=== PATIENT | male | born 1935 | race Caucasian/White ===

== ENCOUNTER 2019-03-03 10:46 | Inpatient (IN) | payer MEDICARE, MEDICAID ==
[~2019-03-03] VITALS: Ht 165.1 cm; Wt 87.5 kg
[2019-03-03] MEDS ORDERED: SEVE800T8 PO (11:03)
[2019-03-03] MEDS ORDERED: ASPI-605 PO (11:03)
[2019-03-03] MEDS ORDERED: MIDO5TAB PO (11:03)
[2019-03-03] MEDS ORDERED: FOLI0.8T2 PO (11:03)
[2019-03-03] MEDS ORDERED: MONT10TA22 PO (11:03)
[2019-03-03] MEDS ORDERED: FENO135C PO (11:03)
[2019-03-03] MEDS ORDERED: METO-356 PO (11:03)
[2019-03-03] MEDS ORDERED: DOCU100C36 PO (11:03)
[2019-03-03] MEDS ORDERED: SACU1TAB PO (11:03)
[2019-03-03] MEDS ORDERED: ATOR20TA PO (11:03)
[2019-03-03] MEDS ORDERED: FURO40SO PO (11:03)
[2019-03-03] MEDS ORDERED: AMIO200T4 PO (11:03)
[2019-03-03 11:05] LABS: BASOPHILS # (AUTO) 0.1 K/uL (0.0-8.0); BASOPHILS % (AUTO) 0.8 % (0.0-2.0); EOSINOPHILS % (AUTO) 0.3 % (0.0-7.0); HEMATOCRIT 29.5 % (36.7-47.1); HEMOGLOBIN 9.9 g/dL (12.5-16.3); LYMPHOCYTES # (AUTO) 1.7 K/uL (20.0-40.0); LYMPHOCYTES % (AUTO) 12.8 % (20.5-51.5); MEAN CORPUSCULAR HEMOGLOBIN 33.3 uug (23.8-33.4); MEAN CORPUSCULAR HGB CONC 34 g/dL (32.5-36.3); MEAN CORPUSCULAR VOLUME 99.4 fL (73.0-96.2); MONOCYTES % (AUTO) 7.7 % (0.0-11.0); NEUTROPHILS # (AUTO) 10.4 K/uL (1.8-8.9); NEUTROPHILS % (AUTO) 78.4 % (38.5-71.5); PLATELET COUNT (AUTO) 514 K/uL (152-348); RED BLOOD CELL COUNT(AUTO) 2.97 MIL/uL (4.06-5.63); WHITE BLOOD COUNT (AUTO) 13.2 K/uL (3.6-10.2)
--- NOTE | 2019-03-03 11:05 | NUR ---
PAGED VIP NEPHROLOGY FOR DR TO DR RAMIREZ.
[2019-03-03 11:14] LABS: CARBON DIOXIDE 30 mmol/L (21-32); CHLORIDE 92 mmol/L (98-107); GLUCOSE 158 mg/dL (74-106); UREA NITROGEN, BLOOD 78 mg/dL (7-18)
[2019-03-03 11:15] LABS: CREATININE 9.1 mg/dL (0.6-1.3)
[2019-03-03] MEDS ORDERED: IPRATROPIUM BROMIDE 0.5 MG/2.5 ML NEBU ONE (11:15)
[2019-03-03] MEDS ORDERED: IPRATROPIUM BROMIDE 0.5 MG/2.5 ML NEBU NEB ONE (11:15)
[2019-03-03] MEDS ORDERED: ALBUTEROL SULFATE 2.5 MG/ 0.5 ML NEBU NEB ONE (11:15)
--- NOTE | 2019-03-03 11:22 | NUR ---
CALLED TO ER FOR INITIAL BREATHING TX ON THE PATIENT. PT IS AWAKE AND ALERT. NO SHORTNESS OF BREATH NOTED. SPO2 NOTED AT 95%, HR 71BPM, RR 19. BREATH SOUNDS BILATERAL EXPIRATORY WHEEZES, WITH IMPROVED AERATION POST TX. POST TX BREATH SOUNDS ARE BILATERALLY DIMINISHED. PT TOLERATED TX WELL. FAMILY IS AT BEDSIDE.
[2019-03-03] MEDS ORDERED: PIPERACILLIN SODIUM/TAZOBACTAM 3.375 G in IV DEXTROSE 5% 50 ML IV ONE (11:30)
[2019-03-03] MEDS ORDERED: LEVOFLOXACIN 750MG/D5W 150 ML IV ONE ×2 (11:30→11:42)
[2019-03-03] MEDS ORDERED: PIPERACILLIN/TAZOBACTAM/D5W 50 ML IV ONE (11:32)
[2019-03-03 12:00] VITALS: BP 111/43
--- NOTE | 2019-03-03 12:08 | NUR ---
RECEIVED PATIENT FROM ER VIA [facility] WITH DX OF CHF AND PNA. NO SOB NOTED AT THIS TIME. NO C/O PAIN NOTED AT THIS TIME. PATIENT IV ON LEFT ARM INTACT, HAS AV FISTULA ON THE RIGHT UPPER ARM. WILL CONTINUE TO MONITOR AND CONTINUE TREATMENT PLAN.
[2019-03-03 12:20] LABS: BILIRUBIN,DIRECT 0.4 mg/dL (0.0-0.2); BILIRUBIN,TOTAL 0.8 mg/dL (0.2-1.0); TOTAL PROTEIN, SERUM 7.1 g/dL (6.4-8.2)
[2019-03-03] MEDS ORDERED: LEVOFLOXACIN 500 MG/D5W 500 MG in PREMIXED 1 EACH IV SCH (13:00)
[2019-03-03] MEDS ORDERED: ALBUTEROL SULFATE 1.25 MG/3 ML NEBU NEB PRN (13:00)
--- NOTE | 2019-03-03 13:00 | NUR ---
ALBUMIN IV 100ML ORDERED AND GIVEN
[2019-03-03] MEDS ORDERED: ALBUMIN HUMAN 25% 100 ML IV PRN (13:15)
[2019-03-03 13:40] LABS: IRON, SERUM 54 ug/dL (50-175)
[2019-03-03] MEDS: methylPREDNISolone SOD SUCC 40 MG/ML VIAL IV SCH ×2 (14:00→21:35)
[2019-03-03] MEDS ORDERED: Z GUARD REMEDY PASTE 57 GM TUBE TOP PRN (15:15)
[2019-03-03 15:50] VITALS: BP 111/24
[2019-03-03] MEDS: SEVELAMER CARBONATE 800 MG TABLET PO SCH (17:53)
[2019-03-03] MEDS: ENTRESTO PO SCH (17:53)
[2019-03-03] MEDS: FENOFIBRATE 134 MG PO SCH (17:53)
[2019-03-03] MEDS ORDERED: FENO134C PO (18:34)
[2019-03-03 20:00] VITALS: BP 120/28
--- NOTE | 2019-03-03 20:00 | NUR ---
RECEIVED PATIENT AWAKE AND ALERT IN BED WITH FAMILY AT BEDSIDE. NO COMPLAINTS OF PAIN OR DISCOMFORT VERBALIZED AT THIS TIME. ALL SAFETY AND FALL PRECAUTION MEASURES ARE IN PLACE. VS ARE WNL. CALL LIGHT AND PERSONAL ITEMS ARE WITHIN REACH AT ALL TIMES. WILL CONTINUE TO MONITOR.
[2019-03-03] MEDS: ATORVASTATIN 20 MG TABLET PO SCH (21:35)
[2019-03-03] MEDS: Z GUARD REMEDY PASTE 57 GM TUBE TOP SCH (21:39)
[2019-03-04] VITALS (9 sets, daily range): BP systolic 60–126; BP diastolic 13–74
[2019-03-04] MEDS: IPRATROPIUM BROMIDE 0.5 MG/2.5 ML NEBU NEB PRN (01:15)
[2019-03-04] MEDS: methylPREDNISolone SOD SUCC 40 MG/ML VIAL IV SCH (05:49)
--- NOTE | 2019-03-04 06:00 | NUR ---
RECEIVED SYSTEM ERROR WHEN TRYING TO WEIGH PATIENT. HAD PATIENT GET OUT OF BED SO I COULD ZERO SCALE BUT RECEIVED SYSTEM ERROR AGAIN. WILL REPORT TO ONCOMING SHIFT. Addendum: 03/04/19 at 0639 by JACKIE WARD RN Amended: Links added.
--- NOTE | 2019-03-04 06:00 | NUR ---
UNABLE TO WEIGH PATIENT DUE TO SYSTEM ERROR RECEIVED USING BED SCALE. TRIED HAVING PATIENT STAND UP AND ZERO OUT BED, BUT RECEIVED SYSTEM ERROR WHEN ZEROING OUT BED, WELL. WILL REPORT TO ONCOMING SHIFT.
[2019-03-04 06:42] LABS: BASOPHILS % (AUTO) 0.1 % (0.0-2.0); HEMATOCRIT 26.2 % (36.7-47.1); HEMOGLOBIN 8.9 g/dL (12.5-16.3); LYMPHOCYTES # (AUTO) 0.4 K/uL (20.0-40.0); LYMPHOCYTES % (AUTO) 4.2 % (20.5-51.5); MEAN CORPUSCULAR HEMOGLOBIN 33.4 uug (23.8-33.4); MEAN CORPUSCULAR HGB CONC 34 g/dL (32.5-36.3); MEAN CORPUSCULAR VOLUME 98.9 fL (73.0-96.2); MONOCYTES # (AUTO) 0.4 K/uL (2.0-10.0); MONOCYTES % (AUTO) 4.3 % (0.0-11.0); NEUTROPHILS # (AUTO) 8.7 K/uL (1.8-8.9); NEUTROPHILS % (AUTO) 91.4 % (38.5-71.5); PLATELET COUNT (AUTO) 421 K/uL (152-348); RED BLOOD CELL COUNT(AUTO) 2.65 MIL/uL (4.06-5.63); WHITE BLOOD COUNT (AUTO) 9.5 K/uL (3.6-10.2)
--- NOTE | 2019-03-04 06:56 | NUR ---
PATIENT IS IN BED ASLEEP RESTING COMFORTABLY. NO SIGNS OR SYMPTOMS OF ACUTE DISTRESS OR DISCOMFORT NOTED OR OBSERVED. VS ARE WNL AND PATIENT IS STABLE. ALL SAFETY AND FALL PRECAUTION MEASURES REMAIN IN PLACE. CALL LIGHT AND PERSONAL ITEMS ARE WITHIN REACH AT ALL TIMES.
[2019-03-04 07:01] LABS: CARBON DIOXIDE 26 mmol/L (21-32); CHLORIDE 90 mmol/L (98-107); MAGNESIUM 2.6 mg/dL (1.8-2.4); POTASSIUM 5.7 mmol/L (3.5-5.1)
[2019-03-04 07:05] LABS: CREATININE 10.2 mg/dL (0.6-1.3); GLUCOSE 367 mg/dL (74-106); PHOSPHOROUS 8.5 mg/dL (2.5-4.9); UREA NITROGEN, BLOOD 90 mg/dL (7-18)
[2019-03-04] MEDS: AMIODARONE HCL 200 MG TABLET PO SCH (08:25)
[2019-03-04] MEDS: FOLIC ACID/VITAMIN B COMP W-C TABLET PO SCH (08:25)
[2019-03-04] MEDS: FUROSEMIDE 40 MG TABLET PO SCH (08:25)
[2019-03-04] MEDS: METOPROLOL SUCCINATE XL 25 MG TAB.SR.24H PO SCH (08:25)
[2019-03-04] MEDS: SEVELAMER CARBONATE 800 MG TABLET PO SCH ×3 (08:25→17:07)
[2019-03-04] MEDS: DOCUSATE SODIUM 100 MG CAPSULE PO SCH (08:25)
[2019-03-04] MEDS: MONTELUKAST SODIUM 10 MG TABLET PO SCH (08:25)
[2019-03-04] MEDS: Z GUARD REMEDY PASTE 57 GM TUBE TOP SCH ×2 (08:26→21:38)
[2019-03-04] MEDS ORDERED: ASPIRIN EC 81 MG TABLET.DR PO SCH (09:00)
[2019-03-04] MEDS ORDERED: FENOFIBRIC ACID 135 MG PO SCH (09:00)
[2019-03-04] MEDS: ENTRESTO PO SCH ×2 (09:08→17:07)
[2019-03-04] MEDS: FENOFIBRATE 134 MG PO SCH (09:08)
--- NOTE | 2019-03-04 10:10 | NUR ---
Family members at bedside,updated with pt.condition and plan of care.
[2019-03-04] MEDS: BLOOD SUGAR DIAGNOSTIC 1 EACH STRIP VI SCH ×3 (11:56→21:36)
[2019-03-04] MEDS: INSULIN REGULAR, HUMAN 300 UNIT/3 ML VIAL SQ PRN ×2 (11:58→17:10)
--- NOTE | 2019-03-04 12:55 | NUR ---
Pt.was seen by ,was notified about US guided Paracentesis on hold due high coags resolts and elev.BS.
[2019-03-04] MEDS ORDERED: EPOETIN ALFA 10,000 UNITS/ML VIAL SQ ONE (13:00)
[2019-03-04] MEDS: ONDANSETRON 4 MG/2 ML VIAL IV PRN ×2 (13:04→17:34)
--- NOTE | 2019-03-04 14:30 | NUR ---
HD RN at bedside,HD started.
[2019-03-04] MEDS ORDERED: ALBUMIN HUMAN 25% 100 ML IV ONE (15:00)
[2019-03-04] MEDS: PANTOPRAZOLE SODIUM 40 MG TABLET.DR PO SCH (17:07)
--- NOTE | 2019-03-04 17:20 | NUR ---
HD done,pt.c/o on nausea,Zofran IV given.
--- NOTE | 2019-03-04 19:47 | NUR ---
PATIENT BP WAS LOW 81/42, RECHECK BP BECAME 60/13, RAPID RESPONSE WAS CALLED. CONT TO MONITOR.PATIENT ALERT ORIENTED, PATIENT WAS DIALYSE 1500CC TAKEN OUT PER AM NURSE, PATIENT ALERT ORIENTED, PATIENT COMPLAIN OF ABDOMINAL PAIN,
--- NOTE | 2019-03-04 19:53 | NUR ---
PATIENT BP WAS LOW 80/22, 80/13, HOB WAS LOWER AND LEG UP BP CAME UP 89/36, DEBI THOMPSON WAS NOTIFY AND SAID PATIENT BP IS ALWAYS AND NO NEW ORDER, AND MD STATED CALL HIM IF SBP BELOW 80.
--- NOTE | 2019-03-04 19:58 | NUR ---
WILL CONT TO MONITOR CONDITION.
[2019-03-04 20:17] LABS: HEMATOCRIT 27.2 % (36.7-47.1); LYMPHOCYTES # (AUTO) 1.1 K/uL (20.0-40.0); LYMPHOCYTES % (AUTO) 6.9 % (20.5-51.5); MEAN CORPUSCULAR HEMOGLOBIN 32.6 uug (23.8-33.4); MEAN CORPUSCULAR HGB CONC 33 g/dL (32.5-36.3); MEAN CORPUSCULAR VOLUME 98.8 fL (73.0-96.2); MONOCYTES # (AUTO) 1.2 K/uL (2.0-10.0); MONOCYTES % (AUTO) 7.9 % (0.0-11.0); NEUTROPHILS # (AUTO) 13.1 K/uL (1.8-8.9); NEUTROPHILS % (AUTO) 85.2 % (38.5-71.5); PLATELET COUNT (AUTO) 553 K/uL (152-348); RED BLOOD CELL COUNT(AUTO) 2.75 MIL/uL (4.06-5.63); WHITE BLOOD COUNT (AUTO) 15.4 K/uL (3.6-10.2)
[2019-03-04] MEDS: ATORVASTATIN 20 MG TABLET PO SCH (21:35)
[2019-03-05 00:03] VITALS: BP 140/84
--- NOTE | 2019-03-05 00:15 | NUR ---
PATIENT WAS FOUND ON FLOOR IN THE SEATING POSITION, AND BEHIND THE PATIENT IS A CHAIR NEXT HIS BED. INTERVIEWED PATIENT IF HE HAS PAIN ON ANY PART OF HIS BODY, PATIENT STATED "NO PAIN". ASSISTED PATIENT BACK TO BED, BODY CHECK WAS DONE, NO APPARENT INJURY NOTED, NO COMPLAIN OF PAIN, GENTLE ROM DONE ON FOUR EXTREMITY. PUT 2 SIDERAILS AND CALL LIGHT WITHIN REACH, BED ALARM WAS PUT ON. FREQUENT VISUAL CHECK DONE, AND RN AND WASHING MACHINE ASSEMBLER ALTERNATE TO PROVIDE 1;1 SITTING. NO S/S OF DISTRESS.
[2019-03-05] MEDS: diphenhydrAMINE 25 MG CAP PO PRN (00:26)
--- NOTE | 2019-03-05 00:37 | NUR ---
PATIENT HAS SEVERE ANXIETY, RESTLESSNESS, COMPLAIN OF ABDOMINAL DISCOMFORT. CALLED DEBI PRETTY WITH ORDER OF ATIVAN 0.5 MG PO EVERY 6 HRS NEEDED FOR ANXIETY. MD PREFER TO ADDRESS ABDOMINAL DISCOMFORT IN AM. MD NOTIFY THAT PATIENT FOUND ON FLOOR SEATING POSITION ON HIS ROOM.
[2019-03-05] MEDS: BLOOD SUGAR DIAGNOSTIC 1 EACH STRIP VI SCH ×4 (05:46→22:05)
[2019-03-05] MEDS: PANTOPRAZOLE SODIUM 40 MG TABLET.DR PO SCH ×2 (05:46→16:49)
--- NOTE | 2019-03-05 05:59 | NUR ---
PATIENT HAS REDNESS OF BAN AREA, WITH ORDER.
[2019-03-05 06:28] VITALS: BP 107/35
[2019-03-05] MEDS: Z GUARD REMEDY PASTE 57 GM TUBE TOP SCH ×3 (06:31→22:01)
[2019-03-05 06:33] LABS: ALANINE AMINOTRANSFERASE 19 U/L (16-63); ALKALINE PHOSPHATASE 37 U/L (50-136); ASPARTATE AMINOTRANSFERASE 15 U/L (15-37); BASOPHILS % (AUTO) 0.1 % (0.0-2.0); BILIRUBIN,TOTAL 0.7 mg/dL (0.2-1.0); CARBON DIOXIDE 27 mmol/L (21-32); CHLORIDE 99 mmol/L (98-107); GLUCOSE 228 mg/dL (74-106); HEMATOCRIT 24.6 % (36.7-47.1); HEMOGLOBIN 8.2 g/dL (12.5-16.3); LYMPHOCYTES # (AUTO) 1.2 K/uL (20.0-40.0); LYMPHOCYTES % (AUTO) 9.3 % (20.5-51.5); MAGNESIUM 2.7 mg/dL (1.8-2.4); MEAN CORPUSCULAR HEMOGLOBIN 33.1 uug (23.8-33.4); MEAN CORPUSCULAR HGB CONC 33 g/dL (32.5-36.3); MEAN CORPUSCULAR VOLUME 99.6 fL (73.0-96.2); MONOCYTES # (AUTO) 1.2 K/uL (2.0-10.0); MONOCYTES % (AUTO) 8.9 % (0.0-11.0); NEUTROPHILS # (AUTO) 10.9 K/uL (1.8-8.9); NEUTROPHILS % (AUTO) 81.7 % (38.5-71.5); PHOSPHOROUS 6.7 mg/dL (2.5-4.9); PLATELET COUNT (AUTO) 494 K/uL (152-348); POTASSIUM 5.4 mmol/L (3.5-5.1); TOTAL PROTEIN, SERUM 6.5 g/dL (6.4-8.2); WHITE BLOOD COUNT (AUTO) 13.3 K/uL (3.6-10.2)
[2019-03-05 06:39] LABS: RED BLOOD CELL COUNT(AUTO) 2.47 MIL/uL (4.06-5.63)
[2019-03-05 06:51] LABS: CREATININE 7.9 mg/dL (0.6-1.3); UREA NITROGEN, BLOOD 81 mg/dL (7-18)
[2019-03-05 07:26] VITALS: BP 105/55
--- NOTE | 2019-03-05 07:32 | NUR ---
PATIENT FAMILY WAS CALLED AND NOTIFY OF THE INCIDENT. SPOKE TO MIRANDA PATIENT SON REGARDING THE INCIDENT.
--- NOTE | 2019-03-05 07:35 | NUR ---
PATIENT AWAKE BUT FORGETFUL NO SOB NO CHEST PAIN, NO COMPLAIN OF PAIN, ENDORSED TO NEXT SHIFT.
--- NOTE | 2019-03-05 08:00 | NUR ---
IN DED WITH NO SS OF PAIN, SLIGHT SOB ON EXERTION WITH ADLS, O2 2L NC SATURATING 97%. 100% V-PACED ON MONITOR ULR SR. CLOSELY MONITORED
[2019-03-05] MEDS: DOCUSATE SODIUM 100 MG CAPSULE PO SCH (08:16)
[2019-03-05] MEDS: FOLIC ACID/VITAMIN B COMP W-C TABLET PO SCH (08:16)
[2019-03-05] MEDS: FUROSEMIDE 40 MG TABLET PO SCH (08:16)
[2019-03-05] MEDS: METOPROLOL SUCCINATE XL 25 MG TAB.SR.24H PO SCH (08:17)
[2019-03-05] MEDS: MONTELUKAST SODIUM 10 MG TABLET PO SCH (08:19)
[2019-03-05] MEDS: SEVELAMER CARBONATE 800 MG TABLET PO SCH ×3 (08:19→17:02)
[2019-03-05] MEDS: AMIODARONE HCL 200 MG TABLET PO SCH (08:19)
[2019-03-05] MEDS: FENOFIBRATE 134 MG PO SCH (08:22)
[2019-03-05] MEDS: INSULIN REGULAR, HUMAN 300 UNIT/3 ML VIAL SQ PRN ×3 (08:24→22:09)
[2019-03-05] MEDS: ENTRESTO PO SCH (08:31)
[2019-03-05 10:59] VITALS: BP 90/41
--- NOTE | 2019-03-05 11:00 | NUR ---
SEEN BY PORSHA TRENT MADE AWARE OF PATIENT LOW BP DURING PHYSICAL THERAPY SESSION. SEE NOTES.
[2019-03-05] MEDS: LEVOFLOXACIN 500 MG/D5W 100 ML IV SCH (11:41)
[2019-03-05] MEDS ORDERED: LEVOFLOXACIN 500 MG/D5W 500 MG in PREMIXED 1 EACH IV SCH (12:00)
--- NOTE | 2019-03-05 14:04 | NUR ---
PATIENT KEPT ON NPO FOR ABD US
[2019-03-05 15:00] VITALS: BP 98/38
--- NOTE | 2019-03-05 16:54 | NUR ---
Insulin not administered at this time for patient's blood sugar level of 140. Patient has not yet eaten and kept NPO for abdominal ultrasound. Hypoglycemic prevention implemented.
--- NOTE | 2019-03-05 16:56 | NUR ---
Notified by Gasoline Engine Inspector that MD will cancel Abdominal Ultrasound. Will take patient off NPO status.
--- NOTE | 2019-03-05 18:24 | NUR ---
Patient resting comfortably in bed at this time. No signs of distress. No SOB noted. Denies any pain experienced. Stable condition. Blood pressure improving/elevating slightly throughout shift. Safety measures implemented. Will continue to monitor until end of shift.
[2019-03-05 20:00] VITALS: BP 109/35
--- NOTE | 2019-03-05 21:24 | NUR ---
PROCALCITONIN RESULTS 5.51 NOTIFY ALEXIS FERNANDO.
[2019-03-05] MEDS: ATORVASTATIN 20 MG TABLET PO SCH (22:01)
[2019-03-06] VITALS: BP 94/32
[2019-03-06] MEDS: IPRATROPIUM BROMIDE 0.5 MG/2.5 ML NEBU NEB PRN (01:17)
[2019-03-06 04:00] VITALS: BP 113/44
[2019-03-06 05:13] LABS: *OCCULT BLOOD STOOL POSITIVE (NEGATIVE)
[2019-03-06 06:16] LABS: EOSINOPHILS % (AUTO) 0.1 % (0.0-7.0); HEMATOCRIT 25.1 % (36.7-47.1); HEMOGLOBIN 8.3 g/dL (12.5-16.3); LYMPHOCYTES # (AUTO) 1.4 K/uL (20.0-40.0); LYMPHOCYTES % (AUTO) 10.8 % (20.5-51.5); MEAN CORPUSCULAR HEMOGLOBIN 32.9 uug (23.8-33.4); MEAN CORPUSCULAR HGB CONC 33 g/dL (32.5-36.3); MEAN CORPUSCULAR VOLUME 99.3 fL (73.0-96.2); MONOCYTES # (AUTO) 1.1 K/uL (2.0-10.0); MONOCYTES % (AUTO) 8.3 % (0.0-11.0); NEUTROPHILS # (AUTO) 10.5 K/uL (1.8-8.9); NEUTROPHILS % (AUTO) 80.8 % (38.5-71.5); PLATELET COUNT (AUTO) 459 K/uL (152-348); RED BLOOD CELL COUNT(AUTO) 2.53 MIL/uL (4.06-5.63)
[2019-03-06 06:31] LABS: CARBON DIOXIDE 28 mmol/L (21-32); CHLORIDE 97 mmol/L (98-107); GLUCOSE 157 mg/dL (74-106); POTASSIUM 5.6 mmol/L (3.5-5.1)
[2019-03-06 06:39] LABS: CREATININE 9.3 mg/dL (0.6-1.3); UREA NITROGEN, BLOOD 98 mg/dL (7-18)
[2019-03-06] MEDS: BLOOD SUGAR DIAGNOSTIC 1 EACH STRIP VI SCH ×4 (07:58→20:58)
[2019-03-06] MEDS: SEVELAMER CARBONATE 800 MG TABLET PO SCH ×3 (08:00→17:34)
[2019-03-06] MEDS: DOCUSATE SODIUM 100 MG CAPSULE PO SCH (08:07)
[2019-03-06] MEDS: AMIODARONE HCL 200 MG TABLET PO SCH (08:08)
[2019-03-06] MEDS: FENOFIBRATE 134 MG PO SCH (08:08)
[2019-03-06] MEDS: FOLIC ACID/VITAMIN B COMP W-C TABLET PO SCH (08:09)
[2019-03-06] MEDS: METOPROLOL SUCCINATE XL 25 MG TAB.SR.24H PO SCH (08:09)
[2019-03-06] MEDS: MONTELUKAST SODIUM 10 MG TABLET PO SCH (08:09)
--- NOTE | 2019-03-06 08:10 | NUR ---
PATIENT IS CURRENTLY HAVING DIALYSIS AND DID NOT WANT TO EAT HIS BREAKFAST SO INSULIN COVERAGE PER SLIDING SCALE NOT GIVEN REFUSED ALL OF HIS OTHER MEDICATIONS AT THIS TIME WILL OFFER THEM AGAIN TO HIM LATER.
[2019-03-06] MEDS: Z GUARD REMEDY PASTE 57 GM TUBE TOP SCH ×2 (08:59→20:58)
[2019-03-06] MEDS ORDERED: ALBUMIN HUMAN 25% 100 ML IV ONE (09:00)
--- NOTE | 2019-03-06 09:00 | NUR ---
ALBUMIN GIVEN ORDERED BY THE DIALYSIS NURSE DIALYSIS STILL IN PROGRESS ORDERED.
--- NOTE | 2019-03-06 10:00 | NUR ---
DIALYSIS COMPLETED ORDERED AND HE TOOK OUT 500 ML BLOOD PRESSURE AT THIS TIME IS 91/38
[2019-03-06 10:59] LABS: BILIRUBIN,DIRECT 0.4 mg/dL (0.0-0.2); BILIRUBIN,TOTAL 0.8 mg/dL (0.2-1.0); TOTAL PROTEIN, SERUM 6.6 g/dL (6.4-8.2)
--- NOTE | 2019-03-06 11:45 | NUR ---
PATIENT WANTS TO GET UP ON THE CHAIR ASSISTED AND HE SEATED ON THE CHAIR IN HIS ROOM O2 REMOVED AT THIS TIME AND RECHECKED AFTER 15 MINS AND HE IS AT 93-94 PERCENT SO PATIENT LEFT ON ROOM AIR AND WILL CONTINUE TO OBSERVE AND MONITOR HIS SATURATIONS.
[2019-03-06 12:06] VITALS: BP 108/78
[2019-03-06 12:06] LABS: HEPATITIS B SURFACE AB Reactive (.); HEPATITIS B SURFACE AG Negative (Negative)
[2019-03-06 15:50] VITALS: BP 100/37
--- NOTE | 2019-03-06 16:20 | NUR ---
BLOOD PRESSURE HAS BEEN CONSISTENTLY LOW PATIENT PLACED ON TREN[place]ENSBERG POSITION RANGES BETWEEN 88-100 SYSTOLIC AND DIASTOLIC 29-38 CALLED AND NOTIFIED ALEXIS STORY AND HE STATED TO GO AHEAD AND GIVE PATIENT HIS MIDODRINE WILL CONTINUE TO OBSERVE.
[2019-03-06 16:24] VITALS: BP 99/37
[2019-03-06] MEDS: MIDODRINE HCL 5 MG TABLET PO SCH (16:24)
[2019-03-06] MEDS: PANTOPRAZOLE SODIUM 40 MG TABLET.DR PO SCH (16:43)
[2019-03-06] MEDS: INSULIN REGULAR, HUMAN 300 UNIT/3 ML VIAL SQ PRN (16:47)
--- NOTE | 2019-03-06 17:34 | NUR ---
PATIENT REFUSED DINNER BUT IS DRINKING JUICES RENVELLA NOT GIVEN AT THIS TIME.
--- NOTE | 2019-03-06 18:00 | NUR ---
RESTING STILL FEELING WEAK BLOOD PRESSURE STILL LOW AT 100 SYSTOLIC WILL CONTINUE TO OBSERVE.
[2019-03-06 20:06] VITALS: BP 122/31
[2019-03-06] MEDS: ATORVASTATIN 20 MG TABLET PO SCH (20:57)
[2019-03-06] MEDS: INSULIN REGULAR, HUMAN 300 UNITS/3 ML VIAL SQ PRN (21:00)
[2019-03-06] MEDS: diphenhydrAMINE 25 MG CAP PO PRN (23:28)
[2019-03-07 00:47] VITALS: BP 152/41
[2019-03-07 04:48] VITALS: BP 121/85
[2019-03-07] MEDS: PANTOPRAZOLE SODIUM 40 MG TABLET.DR PO SCH ×2 (06:11→16:06)
[2019-03-07] MEDS: BLOOD SUGAR DIAGNOSTIC 1 EACH STRIP VI SCH ×4 (06:28→21:32)
[2019-03-07 07:05] LABS: CARBON DIOXIDE 25 mmol/L (21-32); CHLORIDE 98 mmol/L (98-107); GLUCOSE 156 mg/dL (74-106); POTASSIUM 5.7 mmol/L (3.5-5.1); UREA NITROGEN, BLOOD 79 mg/dL (7-18)
[2019-03-07 07:10] LABS: CREATININE 8.2 mg/dL (0.6-1.3)
--- NOTE | 2019-03-07 07:29 | NUR ---
END OF SHIFT REPORT PATIENT RESTED WELL IN BETWEEN CARE; INC ON STOOL X1; CLEANED AND MADE COMFORTABLE; SAFETY MAINTAINED; NEEDS ATTENDED; CONTINUE PLAN OF CARE
--- NOTE | 2019-03-07 07:33 | NUR ---
RECEIVED PATIENT ASLEEP BUT IS EASILY AROUSABLE ON ROUNDS REMAIN ON O2 AT 2L/M BY NASAL CANULA WITH NO SHORTNESS OF BREATH AT THIS TIME.RIGHT ARM AV SHUNT INTACT WITH BRUIT AND THRILL ABDOMEN REMAIN LARGE AND DISTENDED WILL ATTEMPT TO KEEP PATIENT NPO PENDING CT ABDOMEN ORDERED WILL CALL THE CT DEPT TO INQUIRE WHEN THEY WILL BE HERE
--- NOTE | 2019-03-07 07:45 | NUR ---
PATIENT IS NPO INSULIN NOT GIVEN AT THIS TIME.
--- NOTE | 2019-03-07 07:55 | NUR ---
CALL RECEIVED FROM AJAY THE GLOST KIL[employer] OPERATOR AND SHE STATED THAT THE [email or web address] SOUND TECH WILL BE HERE ABOUT 0830 TODAY.
--- NOTE | 2019-03-07 07:56 | NUR ---
PATIENT WILL BE KEPT NPO PENDING THE UTRA SOUND OF THE ABDOMEN ORDERED
[2019-03-07] MEDS: SEVELAMER CARBONATE 800 MG TABLET PO SCH ×3 (08:00→17:09)
[2019-03-07] MEDS: METOPROLOL SUCCINATE XL 25 MG TAB.SR.24H PO SCH (09:00)
[2019-03-07] MEDS: FENOFIBRATE 134 MG PO SCH (09:00)
[2019-03-07] MEDS: MONTELUKAST SODIUM 10 MG TABLET PO SCH (09:00)
[2019-03-07] MEDS: DOCUSATE SODIUM 100 MG CAPSULE PO SCH (09:00)
[2019-03-07] MEDS: FOLIC ACID/VITAMIN B COMP W-C TABLET PO SCH (09:00)
[2019-03-07] MEDS: AMIODARONE HCL 200 MG TABLET PO SCH (09:00)
--- NOTE | 2019-03-07 09:15 | NUR ---
ALEXIS STORY HERE TO SEE PATIENT SPOKE WITH THE PATIENT AND HIS FAMILY AT LENGTH AND EXPLAINED TO THEM PLAN OF CARE AND THEY EXPRESSED UNDERSTANDING.
--- NOTE | 2019-03-07 09:30 | NUR ---
PER ALEXIS PATIENT WILL RECEIVE FFP IN AM BEFORE HIS PARACENTHESIS TOMORROW PATIENT AND FAMILY AWARE AND CONSCENT SIGNED BY THE PATIENT AND DOCUMENTED
--- NOTE | 2019-03-07 09:46 | NUR ---
PATIENT HAS POOR VEIV DORY ESPINOZA AWARE WITH ORDER FOR A MID LINE THE BLEACHER PULP MELODIE NOTIFIED WILL CALL THE MID LINE NURSE.
[2019-03-07] MEDS: Z GUARD REMEDY PASTE 57 GM TUBE TOP SCH ×2 (09:50→21:13)
--- NOTE | 2019-03-07 09:55 | NUR ---
PATIENT IS REFUSING TO EAT ATE ONLY ONE BITE OF HIS FOOD AND REFUSING TO TAKE HIS MEDICATIONS AT THIS TIME.
[2019-03-07] MEDS ORDERED: PHYTONADIONE 5 MG TABLET PO ONE (10:15)
[2019-03-07 10:16] LABS: BASOPHILS % (AUTO) 0.3 % (0.0-2.0); EOSINOPHILS % (AUTO) 0.1 % (0.0-7.0); HEMATOCRIT 26.8 % (36.7-47.1); HEMOGLOBIN 8.6 g/dL (12.5-16.3); LYMPHOCYTES # (AUTO) 1.4 K/uL (20.0-40.0); LYMPHOCYTES % (AUTO) 8.6 % (20.5-51.5); MEAN CORPUSCULAR HGB CONC 32 g/dL (32.5-36.3); MEAN CORPUSCULAR VOLUME 99.7 fL (73.0-96.2); MONOCYTES # (AUTO) 1.5 K/uL (2.0-10.0); MONOCYTES % (AUTO) 8.8 % (0.0-11.0); NEUTROPHILS # (AUTO) 13.8 K/uL (1.8-8.9); NEUTROPHILS % (AUTO) 82.2 % (38.5-71.5); PLATELET COUNT (AUTO) 520 K/uL (152-348); RED BLOOD CELL COUNT(AUTO) 2.69 MIL/uL (4.06-5.63); WHITE BLOOD COUNT (AUTO) 16.8 K/uL (3.6-10.2)
--- NOTE | 2019-03-07 10:17 | NUR ---
DR CHRISTIANIAN HERE TO SEE AND EXAMINE PATIENT WITH NEW ORDERS AND NOTED.
[2019-03-07] MEDS: INSULIN REGULAR, HUMAN 300 UNIT/3 ML VIAL SQ PRN ×2 (11:07→16:01)
[2019-03-07] MEDS: LEVOFLOXACIN 500 MG/D5W 100 ML IV SCH (11:09)
[2019-03-07 11:10] VITALS: BP 110/40
[2019-03-07] MEDS ORDERED: PHYTONADIONE 10 MG/1 ML AMPUL SQ ONE (12:15)
[2019-03-07 15:58] VITALS: BP 147/58
--- NOTE | 2019-03-07 16:19 | NUR ---
MID LINE INSERTED TO HIS RIGHT UPPER ARM GAUGE 18 AND TOLERATED PROCEDURE WELL
[2019-03-07] MEDS: ONDANSETRON 4 MG/2 ML VIAL IV PRN (17:08)
--- NOTE | 2019-03-07 17:09 | NUR ---
PATIENT VOMITED 150 ML OF PARTLY UNDIGESTED FOOD MEDICATED WITH ZOFRAN ORDERED UNABLE TO EAT AND SUCH RENVELLA NOT GIVEN WILL CONTINUE TO OBSERVE.
--- NOTE | 2019-03-07 18:00 | NUR ---
RESTING NO FURTHER EMESIS AT THIS TIME AT BEDSIDE IS UNABLE TO EAT DINNER WILL CONTINUE TO OBSERVE.
[2019-03-07 20:08] VITALS: BP 110/47
--- NOTE | 2019-03-07 20:35 | NUR ---
Spoke with Dr. Danis Momin about FFP order and Plt of 520. Asked if it safe to transfuse. replied it is for Pt/INR and it is safe to procede with FFP transfusion. hydroelectric mechanic notified.
[2019-03-07] MEDS: ATORVASTATIN 20 MG TABLET PO SCH (21:13)
[2019-03-07] MEDS: INSULIN REGULAR, HUMAN 300 UNITS/3 ML VIAL SQ PRN (21:34)
--- NOTE | 2019-03-07 21:40 | NUR ---
Report from CHRISTOPHER MOORE. Received pt resting in bed, semi James's position. Pt alert and oriented x2 to name and place. Discussed and reviewed plan of care with pt, pt passive but states okay. Tele noted to be V pacing with HR 76. O2 sats up to 94% via 3L NC. Pt with productive cough, no secretions noted. Pt shows no s/s of acute distress. Pt denies pain, discomfort or SOB. Assessment completed. Aspiration and safety precautions observed. Call light within reach. Will continue to monitor.
--- NOTE | 2019-03-07 22:10 | NUR ---
Notified [facility] furniture rental consultant DR BURK regarding critical lab value PROCALCITONIN 5.25. No new orders received. Will continue to monitor.
--- NOTE | 2019-03-07 23:30 | NUR ---
Call made to [facility] electronics worker DR BURK regarding pt condition. Notified MD about pt retaining urine, bladder scanner noted to be 790 cc. Also notified MD about pt's recent low blood pressure readings, SBPs ranging from 86 - 90s. New order of rodríguez catheter insertion and to continue to monitor pt's BP values. Will continue with plan of care. Addendum: 03/08/19 at 0651 by MYLES FLOWER RN INCORRECT DOCUMENTATION: CORRECTION 490 cc.
--- NOTE | 2019-03-07 23:47 | NUR ---
De Leon cath FR 16 inserted aseptically. No signs of bleeding during insertion. Pt tolerated procedure well, no acute distress noted. Urine noted to be khushboo color. Continue to monitor.
[2019-03-08] VITALS (16 sets, daily range): BP systolic 102–156; BP diastolic 11–51
--- NOTE | 2019-03-08 02:35 | NUR ---
Blood transfusion started. Pt denies discomfort, no signs of respiratory distress noted. See transfusions flow sheet for data. Will continue to monitor closely.
--- NOTE | 2019-03-08 04:00 | NUR ---
1 unit of FFP infused. Pt has no complaints of discomfort, SOB or pain at this time. Will monitor closely and continue plan of care.
--- NOTE | 2019-03-08 04:05 | NUR ---
Spoke to Jose F from LAB/BLOOD BANK regarding second unit of FFP product. Verified pt name, , medical record number and registration number. Unable to scan product. Clarified with Jose F and states that standard product number is unable to scan through [employer] system. States to use the blood transfusion record form. Nutrition Specialist aware. Will administer FFP and continue to monitor closely.
--- NOTE | 2019-03-08 04:15 | NUR ---
Second unit of FFP started. Pt denies pain or SOB. BP 119/42. HR 91. O2 sats up to 99% via 3L NC. RR 20. Pt afebrile. No s/s of blood transfusion reaction. Will continue to monitor.
--- NOTE | 2019-03-08 05:30 | NUR ---
1 unit of FFP infused and completed. A total of 2 units of FFP infused. Pt had no s/s of SOB, nausea or severe pain. No signs of acute distress noted. Will continue plan of care.
[2019-03-08 05:35] LABS: BASOPHILS % (AUTO) 0.2 % (0.0-2.0); EOSINOPHILS % (AUTO) 0.2 % (0.0-7.0); HEMATOCRIT 23.2 % (36.7-47.1); HEMOGLOBIN 7.6 g/dL (12.5-16.3); LYMPHOCYTES # (AUTO) 1.2 K/uL (20.0-40.0); LYMPHOCYTES % (AUTO) 8.6 % (20.5-51.5); MEAN CORPUSCULAR HEMOGLOBIN 32.5 uug (23.8-33.4); MEAN CORPUSCULAR HGB CONC 33 g/dL (32.5-36.3); MEAN CORPUSCULAR VOLUME 99.5 fL (73.0-96.2); MONOCYTES # (AUTO) 1.3 K/uL (2.0-10.0); MONOCYTES % (AUTO) 9.4 % (0.0-11.0); NEUTROPHILS % (AUTO) 81.6 % (38.5-71.5); PLATELET COUNT (AUTO) 415 K/uL (152-348); WHITE BLOOD COUNT (AUTO) 13.5 K/uL (3.6-10.2)
[2019-03-08 05:37] LABS: RED BLOOD CELL COUNT(AUTO) 2.33 MIL/uL (4.06-5.63)
[2019-03-08 05:56] LABS: CARBON DIOXIDE 28 mmol/L (21-32); CHLORIDE 99 mmol/L (98-107); GLUCOSE 83 mg/dL (74-106); POTASSIUM 5.4 mmol/L (3.5-5.1)
[2019-03-08 06:01] LABS: CREATININE 9.3 mg/dL (0.6-1.3); UREA NITROGEN, BLOOD 91 mg/dL (7-18)
--- NOTE | 2019-03-08 06:10 | NUR ---
AM care rendered, kept pt clean and dry. Pt turned and repositioned. No SOB during care. Will endorse accordingly to day shift nurse.
[2019-03-08] MEDS: PANTOPRAZOLE SODIUM 40 MG TABLET.DR PO SCH ×2 (06:16→17:00)
[2019-03-08] MEDS: BLOOD SUGAR DIAGNOSTIC 1 EACH STRIP VI SCH ×4 (06:33→22:50)
--- NOTE | 2019-03-08 07:30 | NUR ---
RECEIVED PATIENT IN BED POST FFP WITH NO S/S OF ADVERSE OR ALLERGIC REACTIONS AT THIS TIME PATIENT IS AWAKE ALERT TO SELF LANGUAGE BARRIER REMAIN ON O2 WITH NO S/S OF RESPIRATIOY DISTRESS AT THIS TIME TELE IS SR MADE COMFORTABLE AND WILL CONTINUE TO OBSERVE PATIENT.
[2019-03-08] MEDS: ONDANSETRON 4 MG/2 ML VIAL IV PRN ×3 (08:28→23:54)
[2019-03-08] MEDS: METOPROLOL SUCCINATE XL 25 MG TAB.SR.24H PO SCH (08:31)
[2019-03-08] MEDS: FOLIC ACID/VITAMIN B COMP W-C TABLET PO SCH (08:35)
[2019-03-08] MEDS: AMIODARONE HCL 200 MG TABLET PO SCH (08:35)
[2019-03-08] MEDS: MONTELUKAST SODIUM 10 MG TABLET PO SCH (08:35)
[2019-03-08] MEDS: DOCUSATE SODIUM 100 MG CAPSULE PO SCH (08:35)
[2019-03-08] MEDS: LORAZEPAM 0.5 MG TABLET PO PRN (08:35)
[2019-03-08] MEDS: Z GUARD REMEDY PASTE 57 GM TUBE TOP SCH ×2 (08:36→22:18)
[2019-03-08] MEDS: FENOFIBRATE 134 MG PO SCH (08:36)
[2019-03-08] MEDS: SEVELAMER CARBONATE 800 MG TABLET PO SCH ×3 (08:42→17:30)
--- NOTE | 2019-03-08 11:18 | NUR ---
CALL RECEIVED FROM THE RADIOLOGY DEPT STATED THAT THE RADIOLOGIST WILL BE HERE FOR THE PARACENTHESIS ORDERED LATER TODAY PATIENT AND FAMILY AWARE.
--- NOTE | 2019-03-08 12:05 | NUR ---
DR PINEDA HERE TO SEE PATIENT WITH NEW ORDERS AND STATED TO NOT CALL FOR RAPID RESPONSE FOR LOW BLOOD PRESSURE DUE TO THE LIVER DISEASE WITH ORDERS AND NOTED.
--- NOTE | 2019-03-08 12:50 | NUR ---
UNABLE TO ADMINISTER RENVELLA PATIENT REFUSED LUNCH AT THIS TIME
--- NOTE | 2019-03-08 13:33 | NUR ---
LOPEZ CATHETER REMOVED PER DR PINEDA WHO WAS HERE TO SEE PATIENT AND STATED THAT PATIENTS BLOOD PRESSURE WILL BE LOW MOST OF THE TIME DUE TO HIS LIVER ISSUES STATED TO DO NOT CALL THE RRN UNLESS THE BLOOD PRESSURE SYSTOLIC IS IN THE MID 70S AND PATIENT IS SYMPTOMATIC AND NOTED
--- NOTE | 2019-03-08 15:45 | NUR ---
PARACENTHESIS COMPLETED ORDERED BY DR AUGUSTE AND 4050 ML DARH YELLOWISH FLUID REMOVED PATIENT TOLERATED PROCEDURE WELL BAND AID APPLIED TO THE SITE ON HIS RIGHT ABDOMEN NO BLEEDING NOTED.
[2019-03-08 16:45] LABS: HEMATOCRIT 24.4 % (36.7-47.1); HEMOGLOBIN 7.7 g/dL (12.5-16.3)
[2019-03-08] MEDS ORDERED: DEXTROSE 10 % IN WATER 250 ML IV ONE (18:15)
--- NOTE | 2019-03-08 18:15 | NUR ---
CALLED AND NOTIFIED ALEXIS HATFIELD LOW SUGAR HAS BEEN CONSISTENTLY LOW WAS RECHECKED BY THE LAB AND APPLE JUICE AND 10 PERCENT DEXTROSE GIVEN ORDERED AND ALSO THE H/H THAT WAS RECHECKED AT 1600 IS 7.7/24 AND HE STATED OKAY TO LET HIM KNOW IF THE BLOOD SUGAR REMAINS LOW.
[2019-03-08] MEDS: MIDODRINE HCL 5 MG TABLET PO SCH (18:26)
--- NOTE | 2019-03-08 18:26 | NUR ---
BLOOD PRESSURE IS 135/37 YESICA CHICKEN DRESSER STATED ON HER WAY TO DO DIALYSIS WANTS THE MIDODRIN GIVEN NOW.
--- NOTE | 2019-03-08 18:37 | NUR ---
BLOOD SUGAR AT THIS TIME IS 1835
--- NOTE | 2019-03-08 19:00 | NUR ---
PATIENT AWAKE HOB ELEVATE TELE MONITOR V PACING AT THIS TIME. NO SOB NO CHEST PAIN NOTED. PATIENT IS BEING DIALYZED AT THIS TIME. CONT TO MONITOR BP AND BLOOD SUGAR. CONT TO MONITOR.
--- NOTE | 2019-03-08 22:00 | NUR ---
BLOOD SUGAR WAS 45 , PATIENT ALERT, FOLLOW COMMANDS, GIVEN ORANGE JUICE, FERNANDO APPLIED PSYCHOLOGY PROFESSOR AWARE WITH ORDER TO GIVE DEXTROSE ORDERED. CONT TO MONITOR.
[2019-03-08] MEDS: ATORVASTATIN 20 MG TABLET PO SCH (22:18)
[2019-03-08] MEDS ORDERED: CEFTRIAXONE 1 G VIAL ONE (22:32)
[2019-03-08] MEDS: CEFTRIAXONE 1 G in IV DEXTROSE 5% 50 ML IV SCH (22:35)
[2019-03-08] MEDS ORDERED: DEXTROSE 50% 50 ML DISP.SYRIN ONE (22:40)
[2019-03-08] MEDS: DEXTROSE 50% 50 ML DISP.SYRIN IV PRN (22:51)
--- NOTE | 2019-03-08 23:41 | NUR ---
RECHECK PATIENT BLOOD SUGAR 112 AT THIS TIME. CONT TO MONITOR. BP STABLE. CONT TO MONITOR.
[2019-03-09 05:39] VITALS: BP 157/25
[2019-03-09] MEDS ORDERED: DEXTROSE 50% 50 ML DISP.SYRIN ONE (05:45)
[2019-03-09] MEDS: DEXTROSE 50% 50 ML DISP.SYRIN IV PRN (06:04)
[2019-03-09 06:22] LABS: BASOPHILS % (AUTO) 0.1 % (0.0-2.0); EOSINOPHILS % (AUTO) 0.2 % (0.0-7.0); HEMATOCRIT 24.5 % (36.7-47.1); HEMOGLOBIN 7.9 g/dL (12.5-16.3); LYMPHOCYTES # (AUTO) 1.5 K/uL (20.0-40.0); LYMPHOCYTES % (AUTO) 9.7 % (20.5-51.5); MEAN CORPUSCULAR HGB CONC 32 g/dL (32.5-36.3); MEAN CORPUSCULAR VOLUME 99.6 fL (73.0-96.2); MONOCYTES # (AUTO) 1.6 K/uL (2.0-10.0); MONOCYTES % (AUTO) 10.4 % (0.0-11.0); NEUTROPHILS # (AUTO) 12.3 K/uL (1.8-8.9); NEUTROPHILS % (AUTO) 79.6 % (38.5-71.5); PLATELET COUNT (AUTO) 448 K/uL (152-348); WHITE BLOOD COUNT (AUTO) 15.4 K/uL (3.6-10.2)
[2019-03-09 06:39] LABS: RED BLOOD CELL COUNT(AUTO) 2.46 MIL/uL (4.06-5.63)
[2019-03-09] MEDS: PANTOPRAZOLE SODIUM 40 MG TABLET.DR PO SCH ×2 (06:40→16:57)
--- NOTE | 2019-03-09 07:25 | NUR ---
PATIENT BLOOD SUGAR WAS LOW ON 30 GIVEN APPLE JUICE AND DEXTROSE ORDERED WITH EFFECTIVE RESULT. BLOOD SUGAR NOW 101. BP STABLE, PATIENT ALERT VERBALLY RESPONSIVE, TELE MONITOR V PACING ENDORSED TO NEXT SHIFT.
[2019-03-09] MEDS: BLOOD SUGAR DIAGNOSTIC 1 EACH STRIP VI SCH ×4 (07:28→21:52)
--- NOTE | 2019-03-09 07:47 | NUR ---
IN BED WITH EYES CLOSED EASILY AROUSABLE DENIES PAIN OR DISCOMFORTS AT THIS TIME REMAIN ON O2 WITH NO SHORTNESS OF BREATH AT THIS TIME MID LINE REMAINS INTACT WITH NO S/S OF INFILTERATION ON SITE AV SHUNT RIGHT FOREARM WITH BRUIT AND THRILL NO S/S OF HYPO GLYCEMIC REACTIONS AT THIS TIME MADE COMFORTABLE AND WILL CONTINUE TO OBSERVE.
[2019-03-09] MEDS: ONDANSETRON 4 MG/2 ML VIAL IV PRN ×2 (08:54→17:16)
[2019-03-09] MEDS: FOLIC ACID/VITAMIN B COMP W-C TABLET PO SCH (08:55)
[2019-03-09] MEDS: MONTELUKAST SODIUM 10 MG TABLET PO SCH (08:55)
[2019-03-09] MEDS: SEVELAMER CARBONATE 800 MG TABLET PO SCH ×3 (08:55→17:20)
[2019-03-09] MEDS: AMIODARONE HCL 200 MG TABLET PO SCH (08:56)
[2019-03-09] MEDS: DOCUSATE SODIUM 100 MG CAPSULE PO SCH (08:56)
[2019-03-09] MEDS: Z GUARD REMEDY PASTE 57 GM TUBE TOP SCH ×2 (08:57→21:43)
[2019-03-09] MEDS: METOPROLOL SUCCINATE XL 25 MG TAB.SR.24H PO SCH (09:00)
[2019-03-09] MEDS: FENOFIBRATE 134 MG PO SCH (09:07)
[2019-03-09 09:43] LABS: CARBON DIOXIDE 26 mmol/L (21-32); CHLORIDE 101 mmol/L (98-107); GLUCOSE 96 mg/dL (74-106); POTASSIUM 5.8 mmol/L (3.5-5.1); UREA NITROGEN, BLOOD 72 mg/dL (7-18)
[2019-03-09 09:44] LABS: CREATININE 8.3 mg/dL (0.6-1.3)
--- NOTE | 2019-03-09 11:26 | NUR ---
DR MONTENEGRO HERE TO SEE PATIENT WITH NEW ORDERS AND NOTED. AWAKE OF POTASSIUM LEVEL LOW BLOOD PRESSURE AND LOW BLOOD SUGARS BUT PRESENTLY HIS BLOOD SUGAR IS 103
[2019-03-09 11:30] VITALS: BP 111/44
[2019-03-09] MEDS: IV D5/ 0.9% NACL 1,000 ML IV PRN (12:04)
--- NOTE | 2019-03-09 12:47 | NUR ---
PATIENT REFUSED TO EAT LUNCH AT THIS TIME UNABLE TO GIVE HIM THE RENVELLA ORDERED SHOULD BE GIVEN WITH FOOD.
--- NOTE | 2019-03-09 14:36 | NUR ---
NEW ORDER FROM BLANQUITA CAMEJO RECEIVED AND NOTED PER THE RADIOLOGY CT ABDOMEN WITH CONTRAST WILL BE DONE TOMORROW BEFORE DIALYSIS WILL ENDORSE.PATIENTS HERE AWARE AND SIGNED THE CONSCENT AT THIS TIME.
--- NOTE | 2019-03-09 14:37 | NUR ---
PATIENT SEEN AND EXAMINED BY BLANQUITA BURGOS AWARE THAT PATIENTS CT SCAN OF THE ABDOMEN AND PELVIS WILL BE DONE TOMORROW BEFORE DIALYSIS PER THE RADIOLOGIST AND SHE STATED OKAY.
[2019-03-09 16:00] VITALS: BP 104/29
--- NOTE | 2019-03-09 17:52 | NUR ---
RESTING SLEEPING ON AND OFF EASILY AROUSABLE ANSWERS WHEN SPOKEN TO BUT WITH SOME CONFUSSION BLOOD SUGAR CHECKED AND DOCUMENTED AND WITHIN NORMAL LIMITS.MADE COMFORTABLE IVF IN PROGRESS ORDERED WILL CONTINUE TO OBSERVE.
--- NOTE | 2019-03-09 19:45 | NUR ---
Patient alert, oriented no sob no chest pain, on tele monitor v pacing. Patient has no complain of pain nor discomfort. Patient on D5Ns at 60ml/hr. Patient R arm av shut dressing intact, left upper midline intact, patent. Kept clean and dry, incontinent of bowel, cont to monitor.
[2019-03-09 20:22] VITALS: BP 96/25
[2019-03-09] MEDS: ATORVASTATIN 20 MG TABLET PO SCH (21:42)
[2019-03-09] MEDS: CEFTRIAXONE 1 G in IV DEXTROSE 5% 50 ML IV SCH (21:43)
--- NOTE | 2019-03-09 21:46 | NUR ---
PATIENT BLOOD SUGAR 62, WILL REPEAT BLOOD SUGAR CHECK, GIVEN APPLE JUICE. PATIENT ALERT, NO COMPLAIN OF DISCOMFORT, NO COMPLAIN OF PAIN. CONT ON D5NS AT 60ML PER HOUR. CONT TO MONITOR.
--- NOTE | 2019-03-09 23:56 | NUR ---
PATIENT BLOOD SUGAR 50 AFTER APPLE JUICE, CONT TO GIVE APPLE JUICE. PATIENT ALERT, NO SOB NO CHEST PAIN, TELE MONITOR V PACING. PATIENT HAS NO COMPLAIN OF DISCOMFORT, WILL GIVE DEXTROSE IV PUSH ORDERED. PATIENT ON D5NS AT 60 ML, FLUIDS GIVEN CAREFULLY DUE TO CHF, ESRD, AND ASCITES PROBLEMS. CONT TO MONITOR.
[2019-03-10] VITALS (9 sets, daily range): BP systolic 99–150; BP diastolic 23–88
--- NOTE | 2019-03-10 02:28 | NUR ---
REPEAT BLOOD SUGAR CHECK, BLOOD SUGAR 40, GIVEN D10% 250ML WITH EFFECTIVE RESULT, CURRENT BS 138. CONT TO MONITOR.
[2019-03-10] MEDS: BLOOD SUGAR DIAGNOSTIC 1 EACH STRIP VI SCH ×4 (05:56→21:47)
[2019-03-10] MEDS: PANTOPRAZOLE SODIUM 40 MG TABLET.DR PO SCH ×2 (06:00→16:28)
[2019-03-10] MEDS: IV D5/ 0.9% NACL 1,000 ML IV PRN (06:06)
[2019-03-10 06:24] LABS: BASOPHILS % (AUTO) 0.1 % (0.0-2.0); EOSINOPHILS % (AUTO) 0.2 % (0.0-7.0); LYMPHOCYTES % (AUTO) 8.5 % (20.5-51.5); MEAN CORPUSCULAR HEMOGLOBIN 32.3 uug (23.8-33.4); MEAN CORPUSCULAR HGB CONC 32 g/dL (32.5-36.3); MEAN CORPUSCULAR VOLUME 99.9 fL (73.0-96.2); MONOCYTES # (AUTO) 1.2 K/uL (2.0-10.0); MONOCYTES % (AUTO) 10.3 % (0.0-11.0); NEUTROPHILS # (AUTO) 9.5 K/uL (1.8-8.9); NEUTROPHILS % (AUTO) 80.9 % (38.5-71.5); PLATELET COUNT (AUTO) 358 K/uL (152-348); WHITE BLOOD COUNT (AUTO) 11.8 K/uL (3.6-10.2)
[2019-03-10 06:43] LABS: ALANINE AMINOTRANSFERASE 45 U/L (16-63); ALKALINE PHOSPHATASE 55 U/L (50-136); ASPARTATE AMINOTRANSFERASE 61 U/L (15-37); BILIRUBIN,TOTAL 0.9 mg/dL (0.2-1.0); CARBON DIOXIDE 27 mmol/L (21-32); CHLORIDE 99 mmol/L (98-107); GLUCOSE 89 mg/dL (74-106); LIPASE 200 U/L (73-393); MAGNESIUM 2.3 mg/dL (1.8-2.4); PHOSPHOROUS 6.3 mg/dL (2.5-4.9); POTASSIUM 5.9 mmol/L (3.5-5.1); TOTAL PROTEIN, SERUM 5.6 g/dL (6.4-8.2); UREA NITROGEN, BLOOD 79 mg/dL (7-18)
[2019-03-10 06:47] LABS: CREATININE 9.2 mg/dL (0.6-1.3)
[2019-03-10 06:49] LABS: RED BLOOD CELL COUNT(AUTO) 2.09 MIL/uL (4.06-5.63)
[2019-03-10 06:50] LABS: HEMATOCRIT 20.9 % (36.7-47.1); HEMOGLOBIN 6.8 g/dL (12.5-16.3)
--- NOTE | 2019-03-10 07:04 | NUR ---
PLACE A CALL TO DR. PAREKH TO [facility] OF 6.8, HCT 20.9, LEFT A MESSAGE AWAITING FOR RESPONSE. PATIENT CURRENT BLOOD SUGAR 158, NPO DUE TO PROCEDURE CT ABDOMEN WITH CONTRAST, CONSENT ON CHART. CONT TO MONITOR.
--- NOTE | 2019-03-10 07:20 | NUR ---
DR. MIRIAM CARRERA RETURN THE CALL WITH ORDER OF 2UNITS PRBC WITH DIALYSIS IF POSSIBLE, OR PERIPHERAL, ENDORSED TO NEXT SHIFT.
--- NOTE | 2019-03-10 07:30 | NUR ---
SBAR REPORT RECEIVE FROM DILIA MAHONEY/ CHRISTOPHER PT.A/A/OX3,NO S/S OF ACUTE DISTRESS,DENIES PAIN @ TIME.
[2019-03-10] MEDS: SEVELAMER CARBONATE 800 MG TABLET PO SCH ×3 (08:00→16:28)
[2019-03-10] MEDS ORDERED: IV NORMAL SALINE 250 ML IV ONE (08:06)
[2019-03-10] MEDS ORDERED: SWABABLE VALVE TRANSFER SET EA MC ONE (08:06)
[2019-03-10] MEDS ORDERED: IOHEXOL 300MG/ML 100 ML INFUS..BTL ONE (08:06)
[2019-03-10] MEDS: AMIODARONE HCL 200 MG TABLET PO SCH (09:09)
[2019-03-10] MEDS: FOLIC ACID/VITAMIN B COMP W-C TABLET PO SCH (09:09)
[2019-03-10] MEDS: MONTELUKAST SODIUM 10 MG TABLET PO SCH (09:10)
[2019-03-10] MEDS: DOCUSATE SODIUM 100 MG CAPSULE PO SCH (09:10)
[2019-03-10] MEDS: FENOFIBRATE 134 MG PO SCH (09:10)
[2019-03-10] MEDS: Z GUARD REMEDY PASTE 57 GM TUBE TOP SCH (09:11)
[2019-03-10] MEDS: METOPROLOL SUCCINATE XL 25 MG TAB.SR.24H PO SCH (09:12)
[2019-03-10] MEDS ORDERED: DEXTROSE 10 % IN WATER 250 ML IV PRN (09:45)
[2019-03-10] MEDS ORDERED: IV 10% DEXTROSE 1,000 ML IV PRN (13:30)
[2019-03-10] MEDS: MIDODRINE HCL 5 MG TABLET PO SCH (14:58)
--- NOTE | 2019-03-10 15:00 | NUR ---
HD STARTED,PT.TOLERATED WELL.
--- NOTE | 2019-03-10 15:20 | NUR ---
BLOOD TX.STARTED BY HD RN.2 UNITS OF PRBC.
[2019-03-10] MEDS ORDERED: EPOETIN ALFA 20,000 UNIT/ML ML SQ ONE (16:30)
--- NOTE | 2019-03-10 17:30 | NUR ---
HD done-2l out.
[2019-03-10] MEDS: ATORVASTATIN 20 MG TABLET PO SCH (21:43)
[2019-03-10] MEDS: INSULIN REGULAR, HUMAN 300 UNITS/3 ML VIAL SQ PRN (21:43)
[2019-03-10] MEDS: CEFTRIAXONE 1 G in IV DEXTROSE 5% 50 ML IV SCH (21:45)
[2019-03-11] MEDS: Z GUARD REMEDY PASTE 57 GM TUBE TOP SCH ×2 (00:17→09:00)
[2019-03-11] MEDS: LORAZEPAM 0.5 MG TABLET PO PRN (02:23)
--- NOTE | 2019-03-11 02:26 | NUR ---
NURSING NOTE 2100 PT NOTED TO BE RESTLESS AND WOULD CONSISTENTLY MAKE SHORT INCOMPREHENSIBLE SOUNDS. ABLE TO MAKE NEEDS KNOWN, NO SIGNS OF DISTRESS. COMFORT MEASURES GIVEN, KEPT WARM DRY CLEAN AND COMFORTABLE. REQUESTED TO CALL . ABLE TO COMMUNICATE WITH VIA TELEPHONE. NOTED PT UNABLE TO SLEEP WITH MARKED ANXIETY AND RESTLESSNESS DESPITE NONPHARMACOLOGICAL MEASURES. DENIES PAIN DENIES DIZZINESS. VITALS STABLE. 0215 ADMINISTERED PRN MEDICATION TO ADDRESS ANXIETY INSOMNIA AND RESTLESSNESS. PT COOPERATIVE. REASSURED. WILL CONTINUE TO MONITOR ACCORDINGLY. Addendum: 03/11/19 at 0234 by DILIA PANDEY RN 03/10/2019 2100 PT NOTED TO BE RESTLESS AND WOULD CONSISTENTLY MAKE SHORT INCOMPREHENSIBLE SOUNDS. ABLE TO MAKE NEEDS KNOWN, NO SIGNS OF DISTRESS. COMFORT MEASURES GIVEN, KEPT WARM DRY CLEAN AND COMFORTABLE. REQUESTED TO CALL . ABLE TO COMMUNICATE WITH VIA TELEPHONE. NOTED PT UNABLE TO SLEEP WITH MARKED ANXIETY AND RESTLESSNESS DESPITE NONPHARMACOLOGICAL MEASURES. DENIES PAIN DENIES DIZZINESS. VITALS STABLE. 03/11/2019 0215 ADMINISTERED PRN oral MEDICATION TO ADDRESS ANXIETY INSOMNIA AND RESTLESSNESS. SAFETY MEASURES APPLIED PT COOPERATIVE. REASSURED. WILL CONTINUE TO MONITOR ACCORDINGLY.
[2019-03-11 03:44] VITALS: BP 127/12
[2019-03-11] MEDS: BLOOD SUGAR DIAGNOSTIC 1 EACH STRIP VI SCH ×2 (06:15→11:37)
[2019-03-11] MEDS: PANTOPRAZOLE SODIUM 40 MG TABLET.DR PO SCH ×2 (06:19→16:31)
[2019-03-11 06:31] LABS: BASOPHILS % (AUTO) 0.2 % (0.0-2.0); EOSINOPHILS % (AUTO) 0.1 % (0.0-7.0); HEMATOCRIT 28.1 % (36.7-47.1); HEMOGLOBIN 9.4 g/dL (12.5-16.3); LYMPHOCYTES # (AUTO) 1.3 K/uL (20.0-40.0); LYMPHOCYTES % (AUTO) 8.9 % (20.5-51.5); MEAN CORPUSCULAR HEMOGLOBIN 31.7 uug (23.8-33.4); MEAN CORPUSCULAR HGB CONC 33 g/dL (32.5-36.3); MEAN CORPUSCULAR VOLUME 95.1 fL (73.0-96.2); MONOCYTES # (AUTO) 1.6 K/uL (2.0-10.0); MONOCYTES % (AUTO) 11.1 % (0.0-11.0); NEUTROPHILS # (AUTO) 11.4 K/uL (1.8-8.9); NEUTROPHILS % (AUTO) 79.7 % (38.5-71.5); PLATELET COUNT (AUTO) 378 K/uL (152-348); RED BLOOD CELL COUNT(AUTO) 2.95 MIL/uL (4.06-5.63); WHITE BLOOD COUNT (AUTO) 14.3 K/uL (3.6-10.2)
[2019-03-11 06:36] VITALS: BP 116/36
[2019-03-11 06:54] LABS: CARBON DIOXIDE 29 mmol/L (21-32); CHLORIDE 98 mmol/L (98-107); CREATININE 7.4 mg/dL (0.6-1.3); GLUCOSE 222 mg/dL (74-106); MAGNESIUM 2.1 mg/dL (1.8-2.4); PHOSPHOROUS 5.5 mg/dL (2.5-4.9); POTASSIUM 5.9 mmol/L (3.5-5.1); UREA NITROGEN, BLOOD 63 mg/dL (7-18)
--- NOTE | 2019-03-11 07:22 | NUR ---
RECEIVED PATIENT AWAKE AND ALERT WITH HOB ELEVATED, NO SOB NOTED AT THIS TIME, NO C/O PAIN AT THIS TIME. BED IN LOW POSITION , 2 SIDE RAILS UP AND BED ALARMS. PROVIDE SAFETY AND COMFORT AT ALL TIMES WILL CONTINUE TO MONITOR
[2019-03-11] MEDS: SEVELAMER CARBONATE 800 MG TABLET PO SCH ×2 (08:39→12:38)
[2019-03-11] MEDS: MONTELUKAST SODIUM 10 MG TABLET PO SCH (08:39)
[2019-03-11] MEDS: FOLIC ACID/VITAMIN B COMP W-C TABLET PO SCH (08:39)
[2019-03-11] MEDS: DOCUSATE SODIUM 100 MG CAPSULE PO SCH (08:39)
[2019-03-11] MEDS: FENOFIBRATE 134 MG PO SCH (08:40)
[2019-03-11] MEDS: AMIODARONE HCL 200 MG TABLET PO SCH (08:56)
[2019-03-11] MEDS: METOPROLOL SUCCINATE XL 25 MG TAB.SR.24H PO SCH (09:00)
[2019-03-11] MEDS: INSULIN REGULAR, HUMAN 300 UNIT/3 ML VIAL SQ PRN (09:14)
[2019-03-11 10:00] VITALS: BP 166/50
[2019-03-11] MEDS: MIDODRINE HCL 5 MG TABLET PO SCH (10:18)
--- NOTE | 2019-03-11 10:30 | NUR ---
HEMODIALYSIS STARTED FOR THIS PATIENT.
[2019-03-11 11:11] LABS: AFP, TUMOR MARKER 0.8 ng/mL (0.0-8.3)
[2019-03-11] MEDS ORDERED: DEXTROSE 50% 50 ML DISP.SYRIN IV PRN (11:45)
[2019-03-11 15:30] VITALS: BP 98/49
--- NOTE | 2019-03-11 16:30 | NUR ---
Patient discharged to [facility] via ambulance; discharge instructions given to patient able to verbalize understanding ; no SOB , no pain noted at this time ; belongings accounted for and signed removed id band ; kept midline for continuation of medication at the facility . questions and concerns addressed; report given to Sanchez Alonso
== END 2019-03-11 16:45 | DRG 435 ==
LOC: ER 10:46 → TELE3 11:48
PROVIDERS: ADMIT Internal Medicine Nephrology; ATTEND Internal Medicine Nephrology
PROC: 5A1D70Z Performance of Urinary Filtration, Intermittent, Less than 6 Hours Per Day (ICD-10-PCS; 2019-03-03)
PROC: 5A1D70Z Performance of Urinary Filtration, Intermittent, Less than 6 Hours Per Day (ICD-10-PCS; principal; 2019-03-04)
PROC: 5A1D70Z Performance of Urinary Filtration, Intermittent, Less than 6 Hours Per Day (ICD-10-PCS; 2019-03-06)
PROC: 05H633Z Insertion of Infusion Device into Left Subclavian Vein, Percutaneous Approach (ICD-10-PCS; 2019-03-07)
PROC: 5A1D70Z Performance of Urinary Filtration, Intermittent, Less than 6 Hours Per Day (ICD-10-PCS; 2019-03-08)
PROC: 0W9G3ZZ Drainage of Peritoneal Cavity, Percutaneous Approach (ICD-10-PCS; 2019-03-08)
PROC: 30233K1 Transfusion of Nonautologous Frozen Plasma into Peripheral Vein, Percutaneous Approach (ICD-10-PCS; 2019-03-08)
PROC: 30233R1 Transfusion of Nonautologous Platelets into Peripheral Vein, Percutaneous Approach (ICD-10-PCS; 2019-03-10)
PROC: 5A1D70Z Performance of Urinary Filtration, Intermittent, Less than 6 Hours Per Day (ICD-10-PCS; 2019-03-10)
PROC: 5A1D70Z Performance of Urinary Filtration, Intermittent, Less than 6 Hours Per Day (ICD-10-PCS; 2019-03-11)
DX: C22.0 Liver cell carcinoma (principal); J15.9 Unspecified bacterial pneumonia; N18.6 End stage renal disease; J96.01 Acute respiratory failure with hypoxia; I50.23 Acute on chronic systolic (congestive) heart failure; I21.4 Non-ST elevation (NSTEMI) myocardial infarction; I13.2 Hypertensive heart and chronic kidney disease with heart failure and with stage 5 chronic kidney disease, or end stage renal disease; J44.1 Chronic obstructive pulmonary disease with (acute) exacerbation; J44.0 Chronic obstructive pulmonary disease with (acute) lower respiratory infection; E44.0 Moderate protein-calorie malnutrition; E87.1 Hypo-osmolality and hyponatremia; R18.8 Other ascites; D68.9 Coagulation defect, unspecified; C78.6 Secondary malignant neoplasm of retroperitoneum and peritoneum; E11.22 Type 2 diabetes mellitus with diabetic chronic kidney disease; Z99.2 Dependence on renal dialysis; I48.0 Paroxysmal atrial fibrillation; K75.81 Nonalcoholic steatohepatitis (NASH); Z87.891 Personal history of nicotine dependence; I25.10 Atherosclerotic heart disease of native coronary artery without angina pectoris; Z95.5 Presence of coronary angioplasty implant and graft; Z95.810 Presence of automatic (implantable) cardiac defibrillator; D50.9 Iron deficiency anemia, unspecified; D53.9 Nutritional anemia, unspecified; E87.5 Hyperkalemia; E83.41 Hypermagnesemia; I95.89 Other hypotension; E83.39 Other disorders of phosphorus metabolism; E88.09 Other disorders of plasma-protein metabolism, not elsewhere classified; Z68.32 Body mass index [BMI] 32.0-32.9, adult; D72.829 Elevated white blood cell count, unspecified
CPT/HCPCS: 36415; 70030-TC; 71045; 76700; 82105; 82378; 83550; 83605; 83690; 83735; 83986; 84100; 84132; 84155; 85018; 85025; 85610; 85730; 86301; 86704; 86706; 86850; 86900; 86901; 86920; 87040; 87070; 87205; 87340; 90937; 93005; 93307; 94640; 94664; 97110; 97116; 97530; A4663; G0378; J0696; J0885; J1815; J1956; J2405; J2543; J2920; J3430; J3490; J3590; J7040; J7042; J7050; J7060; P9016-BL; P9017-BL; P9021; P9047; Q0163; Q9967